=== PATIENT | female | born 1960 | race African-American/Black ===

== ENCOUNTER 2020-07-04 21:35 | Inpatient (IN) ==
[2020-07-04] MEDS ORDERED: SODIUM CHLORIDE 0.9% 500 ML IV STA (22:18)
[2020-07-04 22:43] LABS: Basophils # 0.1 10*3/uL (0.0-0.2); Basophils % 1.4 % (0.0-0.8); Eosinophils # 0.6 10*3/uL (0.0-0.87); Eosinophils % 12.2 % (0.00-10.9); Hematocrit 34.8 VOL% (35.7-47.0); Hemoglobin 11.6 GM/DL (12.0-16.0); Immature Granulocytes % 0.4 %; Immature Granulocytes Absolute 0.02 #; Lymphocytes # 0.9 10*3/uL (1.4-4.0); Lymphocytes % 18.1 % (21.3-54.2); Mean Corpuscular HGB Conc 33.3 GM/DL (32-36); Mean Corpuscular Volume 66.5 FL (87-102); Neutrophils % 55.9 % (38.7-73.9); Platelet Count 222 T/CUMM (130-400); Red Blood Count 5.23 MC/CUMM (3.8-5.5); White Blood Count 4.9 T/CUMM (4-12)
[2020-07-04 23:01] LABS: Albumin 3.9 G/DL (3.4-5.0); Bilirubin,Total 1.7 MG/DL (0.2-1.0); Calcium 9.5 MG/DL (8.5-10.1); Osmolality,Calculated 288.4 MOS/KG (273-304); Potassium 4.3 MMOL/L (3.5-5.1); Total Protein 8.5 G/DL (6.4-8.3)
[2020-07-04 23:07] LABS: Eosinophils 12 % (0-10); Hypochromasia Slight; Lymphocytes 16 % (20-55); Microcytosis 2+; Platelet Estimate Normal; Segmented Neutrophils 68 % (50-85); Total Cells Counted 100
[2020-07-05] MEDS ORDERED: GLUCAGON 1 MG VIAL IM PRN (00:38)
[2020-07-05] MEDS ORDERED: ACETAMINOPHEN 325 MG TABLET PO PRN (00:38)
[2020-07-05] MEDS ORDERED: DEXTROSE 50% 25 GM/50 ML VIAL IV PRN (00:38)
[2020-07-05] MEDS ORDERED: MAGNESIUM SULF RIDER 4 GM in PREMIX 1 EACH IV PRN (00:38)
[2020-07-05] MEDS ORDERED: DEXTROSE 50% 25 GM/50 ML SYRINGE IV PRN (01:08)
[2020-07-05] MEDS: ENOXAPARIN 30 MG/0.3 ML SYRINGE SUBCUT SCH (02:18)
[2020-07-05] MEDS: MAGNESIUM SULF RIDER 2 GM in PREMIX 1 EACH IV PRN ×2 (04:12→06:34)
[2020-07-05] MEDS: ALBUTEROL/IPRATROPIUM 3 ML NEB RESP TX SCH ×3 (07:44→19:07)
[2020-07-05] MEDS: INSULIN REGULAR 100 UNIT/ML SUBCUT SCH ×4 (07:56→21:36)
[2020-07-05 08:54] LABS: Basophils # 0.1 10*3/uL (0.0-0.2); Basophils % 1.1 % (0.0-0.8); Eosinophils # 0.6 10*3/uL (0.0-0.87); Hematocrit 32.7 VOL% (35.7-47.0); Immature Granulocytes % 0.4 %; Immature Granulocytes Absolute 0.02 #; Lymphocytes # 0.8 10*3/uL (1.4-4.0); Lymphocytes % 16.9 % (21.3-54.2); Mean Corpuscular HGB Conc 33.6 GM/DL (32-36); Mean Corpuscular Volume 66.1 FL (87-102); Monocytes % 16.7 % (1.7-12.7); Neutrophils % 52.9 % (38.7-73.9); Platelet Count 224 T/CUMM (130-400); Red Blood Count 4.95 MC/CUMM (3.8-5.5); Red Cell Distribution Width 20.7 % (9.3-17.3); White Blood Count 4.7 T/CUMM (4-12)
[2020-07-05] MEDS: PANTOPRAZOLE 40 MG TABLET PO SCH (08:55)
[2020-07-05] MEDS: FUROSEMIDE 40 MG/4 ML VIAL IV SCH ×2 (08:56→17:01)
[2020-07-05] MEDS: methylPREDNISolone SOD SUC 40 MG/1 ML VIAL IV SCH ×2 (09:00→21:37)
[2020-07-05 09:13] LABS: Eosinophils 9 % (0-10); Hypochromasia 1+; Lymphocytes 17 % (20-55); Microcytosis 1+; Platelet Estimate Adequate; Segmented Neutrophils 62 % (50-85); Total Cells Counted 100
[2020-07-05 09:14] LABS: Albumin 3.6 G/DL (3.4-5.0); Bilirubin,Total 1.7 MG/DL (0.2-1.0); Calcium 9.7 MG/DL (8.5-10.1); Osmolality,Calculated 290.2 MOS/KG (273-304); Potassium 4.3 MMOL/L (3.5-5.1); Total Protein 7.9 G/DL (6.4-8.3)
[2020-07-05] MEDS: cefTRIAXone 1,000 MG in SYRINGE 1 EACH IV SCH (17:03)
[2020-07-05] MEDS: AZITHROMYCIN INJ 500 MG in SODIUM CHLORIDE 0.9% 250 ML IV SCH (17:09)
[2020-07-06] MEDS: ALBUTEROL/IPRATROPIUM 3 ML NEB RESP TX SCH ×4 (01:18→20:23)
[2020-07-06] MEDS: ENOXAPARIN 30 MG/0.3 ML SYRINGE SUBCUT SCH (01:50)
[2020-07-06 05:32] LABS: Hematocrit 32.4 VOL% (35.7-47.0); Hemoglobin 10.9 GM/DL (12.0-16.0); Immature Granulocytes % 0.4 %; Immature Granulocytes Absolute 0.01 #; Lymphocytes # 0.3 10*3/uL (1.4-4.0); Lymphocytes % 11.3 % (21.3-54.2); Mean Corpuscular HGB Conc 33.6 GM/DL (32-36); Monocytes % 7.3 % (1.7-12.7); Platelet Count 214 T/CUMM (130-400); Red Blood Count 4.91 MC/CUMM (3.8-5.5); Red Cell Distribution Width 20.5 % (9.3-17.3)
[2020-07-06 05:47] LABS: White Blood Count 2.8 T/CUMM (4-12)
[2020-07-06 05:55] LABS: Calcium 9.9 MG/DL (8.5-10.1); Osmolality,Calculated 295.1 MOS/KG (273-304); Potassium 4.5 MMOL/L (3.5-5.1)
[2020-07-06 05:57] LABS: Albumin 3.6 G/DL (3.4-5.0); Bilirubin,Total 1.4 MG/DL (0.2-1.0); Calcium 9.9 MG/DL (8.5-10.1); Osmolality,Calculated 294.2 MOS/KG (273-304); Potassium 4.6 MMOL/L (3.5-5.1); Total Protein 8.2 G/DL (6.4-8.3)
[2020-07-06 05:59] LABS: Platelet Estimate Adequate
[2020-07-06 06:00] LABS: Hypochromasia 1+; Ovalocytes Slight; Target Cells Few
[2020-07-06 06:02] LABS: Parathyroid Hormone Intact 118.6 PG/ML (18.4-80.1)
[2020-07-06 06:07] LABS: % Iron Saturation 11.3 % (18-50); Thyroid Stimulating Hormone 2.02 uIU/ml (0.358-3.74); Total Protein 8.3 G/DL (6.4-8.3); Uric Acid 18.8 MG/DL (2.6-6.0)
[2020-07-06 07:40] LABS: Albumin (SPE) Rel % 61.3 %; Alpha 1 (SPE) Rel % 3.2 %; Alpha 2 (SPE) Rel % 7.6 %; Beta (SPE) Rel % 9.6 %
[2020-07-06 07:41] LABS: Sedimentation Rate-Westergren 22 MM/HR (0-30)
[2020-07-06] MEDS: PANTOPRAZOLE 40 MG TABLET PO SCH (08:22)
[2020-07-06] MEDS: MULTIVITAMIN (CENTRUM) TABLET PO SCH (08:22)
[2020-07-06] MEDS: FUROSEMIDE 40 MG/4 ML VIAL IV SCH ×2 (08:22→16:42)
[2020-07-06] MEDS: methylPREDNISolone SOD SUC 40 MG/1 ML VIAL IV SCH ×2 (08:24→20:48)
[2020-07-06 08:40] LABS: Total Protein (Chem) 8.3 G/DL (6.4-8.3)
[2020-07-06 08:41] LABS: Albumin (SPE) 5.1 G/DL (3.2-5.3); Alpha 1 (SPE) 0.3 G/DL (0.1-0.4); Alpha 2 (SPE) 0.6 G/DL (0.4-1.0); Beta (SPE) 0.8 G/DL (0.5-1.1); Gamma (SPE) 1.5 G/DL (0.7-1.7)
[2020-07-06] MEDS: INSULIN REGULAR 100 UNIT/ML SUBCUT SCH ×4 (09:20→20:48)
[2020-07-06 10:25] LABS: Gamma (SPE) Rel % 18.3 %
[2020-07-06 10:26] LABS: Immunoglobulin A (Chem) 158 MG/DL (70-400); Immunoglobulin G (Chem) 1730 MG/DL (700-1600); Immunoglobulin M (Chem) 107 MG/DL (40-230)
[2020-07-06] MEDS ORDERED: ceFAZolin 1,000 MG in SYRINGE 1 EACH IV ONE (13:30)
[2020-07-06] MEDS ORDERED: SODIUM CHLORIDE 0.9% 1,000 ML IV SCH (14:00)
[2020-07-06] MEDS ORDERED: ONDANSETRON 4 MG/2 ML VIAL ONE (14:25)
[2020-07-06] MEDS ORDERED: propofoL 200 MG/20 ML VIAL IV ONE ×2 (14:25→15:28)
[2020-07-06] MEDS ORDERED: LIDOCAINE 2% 5 ML VIAL ONE ×2 (14:25→15:28)
[2020-07-06] MEDS ORDERED: BUPIVACAINE MPF 0.25% 30 ML VIAL ONE (14:28)
[2020-07-06] MEDS ORDERED: HEPARIN 5,000 UNIT/1 ML VIAL ONE (14:28)
[2020-07-06] MEDS ORDERED: LIDOCAINE 2%/EPI 20 ML VIAL ONE (14:29)
[2020-07-06] MEDS ORDERED: LIDOCAINE 1% 20 ML VIAL ONE (14:30)
[2020-07-06 15:25] LABS: Hepatitis B Core IgM Quant 0.08 Index; Hepatitis B Surface Ag Quant < 0.10 Index; Hepatitis B Surface Ag Result Negative (Negative); Hepatitis C Virus Ab Quant < 0.02 Index; Hepatitis C Virus Ab Result Negative (Negative)
[2020-07-06] MEDS ORDERED: TISSUE ADHESIVE 1 EACH APPLICATOR TOP ONE (15:25)
[2020-07-06] MEDS ORDERED: CALCIUM CHLORIDE 1,000 MG/10 ML VIAL IV ONE (15:28)
[2020-07-06] MEDS: cefTRIAXone 1,000 MG in SYRINGE 1 EACH IV SCH (16:45)
[2020-07-06] MEDS: SEVELAMER CARBONATE 800 MG TABLET PO SCH (16:52)
[2020-07-06] MEDS: AZITHROMYCIN INJ 500 MG in SODIUM CHLORIDE 0.9% 250 ML IV SCH (16:52)
[2020-07-07] MEDS: ENOXAPARIN 30 MG/0.3 ML SYRINGE SUBCUT SCH (01:50)
[2020-07-07] MEDS: ALBUTEROL/IPRATROPIUM 3 ML NEB RESP TX SCH ×4 (02:27→19:43)
[2020-07-07 02:45] LABS: Calcium 10.5 MG/DL (8.5-10.1); Osmolality,Calculated 298.9 MOS/KG (273-304); Potassium 4.4 MMOL/L (3.5-5.1)
[2020-07-07 02:53] LABS: Hematocrit 33.3 VOL% (35.7-47.0); Hemoglobin 11.2 GM/DL (12.0-16.0); Immature Granulocytes % 0.2 %; Immature Granulocytes Absolute 0.01 #; Lymphocytes # 0.3 10*3/uL (1.4-4.0); Lymphocytes % 6.6 % (21.3-54.2); Mean Corpuscular HGB Conc 33.6 GM/DL (32-36); Mean Corpuscular Volume 65.9 FL (87-102); Monocytes % 7.1 % (1.7-12.7); Neutrophils % 86.1 % (38.7-73.9); Platelet Count 217 T/CUMM (130-400); Red Blood Count 5.05 MC/CUMM (3.8-5.5); Red Cell Distribution Width 21.1 % (9.3-17.3); White Blood Count 4.2 T/CUMM (4-12)
[2020-07-07 02:54] LABS: Albumin 3.9 G/DL (3.4-5.0); Bilirubin,Total 1.5 MG/DL (0.2-1.0); Calcium 10.7 MG/DL (8.5-10.1); Osmolality,Calculated 300.8 MOS/KG (273-304); Potassium 4.5 MMOL/L (3.5-5.1); Total Protein 8.7 G/DL (6.4-8.3); Uric Acid 18.9 MG/DL (2.6-6.0)
[2020-07-07 04:36] LABS: Anisocytosis 1+; Hypochromasia 1+; Microcytosis 1+
[2020-07-07 04:37] LABS: Platelet Estimate Normal; Target Cells Few
[2020-07-07] MEDS: FUROSEMIDE 40 MG/4 ML VIAL IV SCH ×2 (07:33→16:26)
[2020-07-07] MEDS ORDERED: DEXTROSE 50% 25 GM/50 ML VIAL IV PRN (08:07)
[2020-07-07] MEDS ORDERED: GLUCAGON 1 MG VIAL IM PRN (08:07)
[2020-07-07] MEDS: INSULIN REGULAR 100 UNIT/ML SUBCUT SCH ×3 (08:47→16:26)
[2020-07-07] MEDS: SEVELAMER CARBONATE 800 MG TABLET PO SCH ×3 (08:48→16:27)
[2020-07-07] MEDS: AZITHROMYCIN 250 MG TABLET PO SCH (08:48)
[2020-07-07] MEDS: MULTIVITAMIN (CENTRUM) TABLET PO SCH (08:48)
[2020-07-07] MEDS: PANTOPRAZOLE 40 MG TABLET PO SCH (08:49)
[2020-07-07] MEDS: methylPREDNISolone SOD SUC 40 MG/1 ML VIAL IV SCH ×2 (08:49→23:45)
[2020-07-07] MEDS ORDERED: LOSARTAN 50 MG TABLET PO SCH (10:30)
[2020-07-07] MEDS ORDERED: SPIRONOLACTONE 25 MG TABLET PO SCH (10:30)
[2020-07-07 11:10] LABS: Bacteria,Urine Occasional /HPF (Few); Bilirubin,Urine Negative (Negative); Blood, Urine Negative (Negative); Glucose,Urine (UA) Negative (Negative); Hyaline Casts,Urine 4 /LPF (0-3); Ketones,Urine Negative (Negative); Mucus,Urine Occasional /LPF (Occasional); Nitrite,Urine Negative (Negative); Protein,Urine Negative; RBC,Urine 1 /HPF (0-4); Squamous Epithelial Cell,Urine Occasional /HPF (0-10); Urine Appearance CLEAR (Clear); Urine Specific Gravity 1.011 (1.001-1.035); Urine Urobilinogen < 2.0 EU/DL (0.2-1.0); WBC,Urine 8 /HPF (0-6)
[2020-07-07 11:11] LABS: Urine Color Yellow (Yellow)
[2020-07-07] MEDS: LORATADINE 10 MG TABLET PO SCH (11:15)
[2020-07-07] MEDS: carvediloL 6.25 MG TABLET PO SCH (11:16)
[2020-07-07] MEDS: HEPARIN 5,000 UNIT/1 ML VIAL SUBCUT SCH ×2 (11:16→23:45)
[2020-07-07] MEDS: ERGOCALCIFEROL 50,000 UNIT CAPSULE PO SCH (11:17)
[2020-07-07] MEDS: LEVOTHYROXINE 25 MCG TABLET PO SCH (11:21)
[2020-07-07 11:45] LABS: Protein/Creatinine Ratio,Urine 0.3 RATIO
[2020-07-07] MEDS ORDERED: HEPARIN 10,000 UNIT/10 ML VIAL IV PRN (13:23)
[2020-07-07] MEDS: cefTRIAXone 1,000 MG in SYRINGE 1 EACH IV SCH (16:27)
[2020-07-08] MEDS: ALBUTEROL/IPRATROPIUM 3 ML NEB RESP TX SCH ×4 (00:35→20:27)
[2020-07-08] MEDS: carvediloL 6.25 MG TABLET PO SCH ×2 (01:23→07:39)
[2020-07-08] MEDS: INSULIN REGULAR 100 UNIT/ML SUBCUT SCH ×4 (01:39→17:22)
[2020-07-08] MEDS: HEPARIN 5,000 UNIT/1 ML VIAL SUBCUT SCH ×3 (05:47→19:26)
[2020-07-08] MEDS: LEVOTHYROXINE 25 MCG TABLET PO SCH (06:48)
[2020-07-08] MEDS ORDERED: carvediloL 12.5 MG TABLET PO SCH (08:05)
[2020-07-08] MEDS ORDERED: carvediloL 6.25 MG TABLET PO ONE (08:19)
[2020-07-08] MEDS: AZITHROMYCIN 250 MG TABLET PO SCH (09:45)
[2020-07-08] MEDS: SEVELAMER CARBONATE 800 MG TABLET PO SCH ×3 (09:45→17:21)
[2020-07-08] MEDS: LOSARTAN 25 MG TABLET PO SCH (09:46)
[2020-07-08] MEDS: PANTOPRAZOLE 40 MG TABLET PO SCH (09:46)
[2020-07-08] MEDS: MULTIVITAMIN (CENTRUM) TABLET PO SCH (09:46)
[2020-07-08] MEDS: LORATADINE 10 MG TABLET PO SCH (09:46)
[2020-07-08] MEDS: FUROSEMIDE 40 MG/4 ML VIAL IV SCH ×2 (09:47→17:21)
[2020-07-08] MEDS: methylPREDNISolone SOD SUC 40 MG/1 ML VIAL IV SCH (09:47)
[2020-07-08 10:46] LABS: Hematocrit 32.3 VOL% (35.7-47.0); Hemoglobin 10.7 GM/DL (12.0-16.0); Immature Granulocytes % 0.5 %; Immature Granulocytes Absolute 0.02 #; Lymphocytes # 0.5 10*3/uL (1.4-4.0); Lymphocytes % 13.6 % (21.3-54.2); Mean Corpuscular HGB Conc 33.1 GM/DL (32-36); Mean Corpuscular Volume 66.3 FL (87-102); Monocytes % 10.8 % (1.7-12.7); NRBC # 0.02 10*3/uL; Neutrophils % 75.1 % (38.7-73.9); Platelet Count 194 T/CUMM (130-400); Red Blood Count 4.87 MC/CUMM (3.8-5.5); Red Cell Distribution Width 21.2 % (9.3-17.3); White Blood Count 3.9 T/CUMM (4-12)
[2020-07-08 11:00] LABS: Osmolality,Calculated 292.7 MOS/KG (273-304); Potassium 4.4 MMOL/L (3.5-5.1)
[2020-07-08 12:31] LABS: Burr Cells Few; Hypochromasia 4+; Microcytosis 4+; Ovalocytes Few; Platelet Estimate Normal; Polychromasia Slight; Target Cells 2+
[2020-07-08] MEDS: cefTRIAXone 1,000 MG in SYRINGE 1 EACH IV SCH (17:21)
[2020-07-09] MEDS: carvediloL 12.5 MG TABLET PO SCH ×3 (00:47→23:30)
[2020-07-09] MEDS: ALBUTEROL/IPRATROPIUM 3 ML NEB RESP TX SCH ×4 (00:50→19:56)
[2020-07-09] MEDS: INSULIN REGULAR 100 UNIT/ML SUBCUT SCH ×5 (00:50→23:40)
[2020-07-09] MEDS: methylPREDNISolone SOD SUC 40 MG/1 ML VIAL IV SCH ×3 (00:53→23:33)
[2020-07-09] MEDS: HEPARIN 5,000 UNIT/1 ML VIAL SUBCUT SCH ×3 (04:20→18:00)
[2020-07-09] MEDS: LEVOTHYROXINE 25 MCG TABLET PO SCH (06:06)
[2020-07-09 06:48] LABS: Hematocrit 33.6 VOL% (35.7-47.0); Hemoglobin 10.8 GM/DL (12.0-16.0); Immature Granulocytes % 0.2 %; Immature Granulocytes Absolute 0.01 #; Lymphocytes # 0.5 10*3/uL (1.4-4.0); Lymphocytes % 11.2 % (21.3-54.2); Mean Corpuscular HGB Conc 32.1 GM/DL (32-36); Mean Corpuscular Volume 68.2 FL (87-102); Monocytes % 10.2 % (1.7-12.7); Neutrophils % 78.4 % (38.7-73.9); Platelet Count 165 T/CUMM (130-400); Red Blood Count 4.93 MC/CUMM (3.8-5.5); Red Cell Distribution Width 21.3 % (9.3-17.3); White Blood Count 4.2 T/CUMM (4-12)
[2020-07-09 06:59] LABS: Osmolality,Calculated 286.5 MOS/KG (273-304); Potassium 4.3 MMOL/L (3.5-5.1)
[2020-07-09] MEDS: SEVELAMER CARBONATE 800 MG TABLET PO SCH ×3 (09:07→16:12)
[2020-07-09] MEDS: PANTOPRAZOLE 40 MG TABLET PO SCH (09:08)
[2020-07-09] MEDS: AZITHROMYCIN 250 MG TABLET PO SCH (09:08)
[2020-07-09] MEDS: MULTIVITAMIN (CENTRUM) TABLET PO SCH (09:08)
[2020-07-09] MEDS: LORATADINE 10 MG TABLET PO SCH (09:08)
[2020-07-09] MEDS: LOSARTAN 25 MG TABLET PO SCH (09:08)
[2020-07-09] MEDS: FUROSEMIDE 40 MG/4 ML VIAL IV SCH ×2 (09:10→16:12)
[2020-07-09] MEDS: cefTRIAXone 1,000 MG in SYRINGE 1 EACH IV SCH (16:13)
[2020-07-09] MEDS ORDERED: diphenhydrAMINE CAP 25 MG CAPSULE PO PRN (23:52)
[2020-07-10] MEDS: ALBUTEROL/IPRATROPIUM 3 ML NEB RESP TX SCH ×4 (00:39→18:42)
[2020-07-10] MEDS: HEPARIN 5,000 UNIT/1 ML VIAL SUBCUT SCH ×3 (04:06→18:23)
[2020-07-10 05:29] LABS: Hematocrit 33.8 VOL% (35.7-47.0); Hemoglobin 10.9 GM/DL (12.0-16.0); Immature Granulocytes % 0.6 %; Immature Granulocytes Absolute 0.03 #; Lymphocytes # 0.5 10*3/uL (1.4-4.0); Mean Corpuscular HGB Conc 32.2 GM/DL (32-36); Mean Corpuscular Volume 68.4 FL (87-102); Monocytes % 8.4 % (1.7-12.7); NRBC # 0.03 10*3/uL; Platelet Count 186 T/CUMM (130-400); Red Blood Count 4.94 MC/CUMM (3.8-5.5); Red Cell Distribution Width 21.5 % (9.3-17.3); White Blood Count 4.6 T/CUMM (4-12)
[2020-07-10 05:50] LABS: Osmolality,Calculated 290.4 MOS/KG (273-304); Potassium 4.3 MMOL/L (3.5-5.1)
[2020-07-10 05:55] LABS: Hypochromasia 2+; Target Cells 1+
[2020-07-10 05:56] LABS: Microcytosis 2+; Ovalocytes Few; Polychromasia Slight
[2020-07-10 05:57] LABS: Platelet Estimate Adequate
[2020-07-10] MEDS: LEVOTHYROXINE 25 MCG TABLET PO SCH (06:27)
[2020-07-10] MEDS: SEVELAMER CARBONATE 800 MG TABLET PO SCH ×3 (10:21→17:18)
[2020-07-10] MEDS: INSULIN REGULAR 100 UNIT/ML SUBCUT SCH ×4 (10:21→21:20)
[2020-07-10] MEDS: FUROSEMIDE 40 MG/4 ML VIAL IV SCH (10:21)
[2020-07-10] MEDS: LORATADINE 10 MG TABLET PO SCH (13:51)
[2020-07-10] MEDS: carvediloL 12.5 MG TABLET PO SCH ×2 (13:51→21:21)
[2020-07-10] MEDS: AZITHROMYCIN 250 MG TABLET PO SCH (13:51)
[2020-07-10] MEDS: MULTIVITAMIN (CENTRUM) TABLET PO SCH (13:51)
[2020-07-10] MEDS: PANTOPRAZOLE 40 MG TABLET PO SCH (13:51)
[2020-07-10] MEDS: LOSARTAN 25 MG TABLET PO SCH (13:52)
[2020-07-10] MEDS: methylPREDNISolone SOD SUC 40 MG/1 ML VIAL IV SCH ×2 (14:05→21:21)
[2020-07-10] MEDS ORDERED: INFLUENZA VIRUS VACCINE 0.5 ML SYRINGE IM ONE (15:55)
[2020-07-10] MEDS: FUROSEMIDE 20 MG TABLET PO SCH (17:08)
[2020-07-10] MEDS: cefTRIAXone 1,000 MG in SYRINGE 1 EACH IV SCH (17:12)
[2020-07-11] MEDS: ALBUTEROL/IPRATROPIUM 3 ML NEB RESP TX SCH ×4 (00:42→18:58)
[2020-07-11] MEDS: HEPARIN 5,000 UNIT/1 ML VIAL SUBCUT SCH ×3 (02:03→18:00)
[2020-07-11 05:50] LABS: Eosinophils % 0.2 % (0.00-10.9); Hematocrit 34.2 VOL% (35.7-47.0); Immature Granulocytes % 0.8 %; Immature Granulocytes Absolute 0.04 #; Lymphocytes # 0.4 10*3/uL (1.4-4.0); Lymphocytes % 8.1 % (21.3-54.2); Mean Corpuscular HGB Conc 32.2 GM/DL (32-36); Mean Corpuscular Volume 69.5 FL (87-102); Monocytes % 5.3 % (1.7-12.7); NRBC # 0.04 10*3/uL; Neutrophils % 85.6 % (38.7-73.9); Platelet Count 158 T/CUMM (130-400); Red Blood Count 4.92 MC/CUMM (3.8-5.5); Red Cell Distribution Width 22.1 % (9.3-17.3); White Blood Count 5.1 T/CUMM (4-12)
[2020-07-11 06:07] LABS: Calcium 9.7 MG/DL (8.5-10.1); Osmolality,Calculated 284.1 MOS/KG (273-304); Potassium 4.2 MMOL/L (3.5-5.1)
[2020-07-11 06:16] LABS: Calcium 9.9 MG/DL (8.5-10.1); Osmolality,Calculated 283.1 MOS/KG (273-304); Potassium 4.3 MMOL/L (3.5-5.1)
[2020-07-11 06:31] LABS: Hypochromasia 1+; Microcytosis 1+
[2020-07-11] MEDS: PANTOPRAZOLE 40 MG TABLET PO SCH (08:02)
[2020-07-11] MEDS: LEVOTHYROXINE 25 MCG TABLET PO SCH (08:02)
[2020-07-11] MEDS: LOSARTAN 25 MG TABLET PO SCH (08:02)
[2020-07-11] MEDS: LORATADINE 10 MG TABLET PO SCH (08:02)
[2020-07-11] MEDS: AZITHROMYCIN 250 MG TABLET PO SCH (08:02)
[2020-07-11] MEDS: SEVELAMER CARBONATE 800 MG TABLET PO SCH ×3 (08:02→16:19)
[2020-07-11] MEDS: carvediloL 12.5 MG TABLET PO SCH ×2 (08:02→21:11)
[2020-07-11 08:03] LABS: Random Urine Protein (Bench) 32 MG/DL (<11.9)
[2020-07-11] MEDS: INSULIN REGULAR 100 UNIT/ML SUBCUT SCH ×4 (08:03→21:13)
[2020-07-11] MEDS: MULTIVITAMIN (CENTRUM) TABLET PO SCH (08:03)
[2020-07-11] MEDS: FUROSEMIDE 20 MG TABLET PO SCH ×2 (08:03→16:19)
[2020-07-11] MEDS: methylPREDNISolone SOD SUC 40 MG/1 ML VIAL IV SCH ×2 (08:06→21:11)
[2020-07-11 11:56] LABS: Immuno Free Light Chain Kappa 8.61 MG/DL (0.33-1.94); Immuno Free Light Chain Lambda 4.94 MG/DL (0.57-2.63); Immuno Free Light Chain Ratio 1.74 MG/DL (0.26-1.65)
[2020-07-11] MEDS: cefTRIAXone 1,000 MG in SYRINGE 1 EACH IV SCH (16:19)
[2020-07-12] MEDS: ALBUTEROL/IPRATROPIUM 3 ML NEB RESP TX SCH ×4 (01:10→19:27)
[2020-07-12] MEDS: HEPARIN 5,000 UNIT/1 ML VIAL SUBCUT SCH ×3 (04:04→21:40)
[2020-07-12 06:36] LABS: Basophils % 0.2 % (0.0-0.8); Hematocrit 33.6 VOL% (35.7-47.0); Immature Granulocytes % 0.4 %; Immature Granulocytes Absolute 0.02 #; Lymphocytes # 0.3 10*3/uL (1.4-4.0); Lymphocytes % 7.4 % (21.3-54.2); Mean Corpuscular HGB Conc 32.7 GM/DL (32-36); Mean Corpuscular Volume 69.1 FL (87-102); Monocytes % 9.1 % (1.7-12.7); NRBC # 0.05 10*3/uL; Neutrophils % 82.9 % (38.7-73.9); Platelet Count 155 T/CUMM (130-400); Red Blood Count 4.86 MC/CUMM (3.8-5.5); Red Cell Distribution Width 21.8 % (9.3-17.3); White Blood Count 4.6 T/CUMM (4-12)
[2020-07-12 06:48] LABS: Calcium 9.4 MG/DL (8.5-10.1); Osmolality,Calculated 283.5 MOS/KG (273-304); Potassium 4.5 MMOL/L (3.5-5.1)
[2020-07-12 06:53] LABS: Uric Acid 9.1 MG/DL (2.6-6.0)
[2020-07-12 07:03] LABS: Hypochromasia 1+; Platelet Estimate Adequate; Target Cells Few
[2020-07-12 07:04] LABS: Microcytosis 1+
[2020-07-12] MEDS: AZITHROMYCIN 250 MG TABLET PO SCH (09:03)
[2020-07-12] MEDS: LEVOTHYROXINE 25 MCG TABLET PO SCH (09:03)
[2020-07-12] MEDS: MULTIVITAMIN (CENTRUM) TABLET PO SCH (09:03)
[2020-07-12] MEDS: carvediloL 12.5 MG TABLET PO SCH ×2 (09:03→21:34)
[2020-07-12] MEDS: LOSARTAN 25 MG TABLET PO SCH (09:03)
[2020-07-12] MEDS: SEVELAMER CARBONATE 800 MG TABLET PO SCH (09:03)
[2020-07-12] MEDS: LORATADINE 10 MG TABLET PO SCH (09:03)
[2020-07-12] MEDS: FUROSEMIDE 20 MG TABLET PO SCH (09:04)
[2020-07-12] MEDS: PANTOPRAZOLE 40 MG TABLET PO SCH (09:04)
[2020-07-12] MEDS: methylPREDNISolone SOD SUC 40 MG/1 ML VIAL IV SCH ×2 (09:07→21:37)
[2020-07-12] MEDS: INSULIN REGULAR 100 UNIT/ML SUBCUT SCH ×4 (09:12→21:37)
[2020-07-12] MEDS: cefTRIAXone 1,000 MG in SYRINGE 1 EACH IV SCH (17:40)
[2020-07-13] MEDS: ALBUTEROL/IPRATROPIUM 3 ML NEB RESP TX SCH ×4 (01:22→19:13)
[2020-07-13] MEDS: HEPARIN 5,000 UNIT/1 ML VIAL SUBCUT SCH ×3 (03:57→18:17)
[2020-07-13] MEDS: LEVOTHYROXINE 25 MCG TABLET PO SCH (06:09)
[2020-07-13 07:02] LABS: Calcium 9.7 MG/DL (8.5-10.1); Calcium 9.8 MG/DL (8.5-10.1); Osmolality,Calculated 281.8 MOS/KG (273-304); Osmolality,Calculated 284.5 MOS/KG (273-304); Potassium 4.5 MMOL/L (3.5-5.1); Potassium 5.3 MMOL/L (3.5-5.1)
[2020-07-13] MEDS: INSULIN REGULAR 100 UNIT/ML SUBCUT SCH ×4 (08:25→22:18)
[2020-07-13] MEDS: methylPREDNISolone SOD SUC 40 MG/1 ML VIAL IV SCH ×2 (09:57→22:16)
[2020-07-13] MEDS: LORATADINE 10 MG TABLET PO SCH (09:57)
[2020-07-13] MEDS: AZITHROMYCIN 250 MG TABLET PO SCH (09:58)
[2020-07-13] MEDS: LOSARTAN 25 MG TABLET PO SCH (09:58)
[2020-07-13] MEDS: MULTIVITAMIN (CENTRUM) TABLET PO SCH (09:58)
[2020-07-13] MEDS: carvediloL 12.5 MG TABLET PO SCH ×2 (09:58→22:14)
[2020-07-13] MEDS: PANTOPRAZOLE 40 MG TABLET PO SCH (09:58)
[2020-07-14] MEDS: HEPARIN 5,000 UNIT/1 ML VIAL SUBCUT SCH ×2 (04:20→13:10)
[2020-07-14 06:22] LABS: Calcium 9.6 MG/DL (8.5-10.1); Osmolality,Calculated 283.7 MOS/KG (273-304); Potassium 4.6 MMOL/L (3.5-5.1)
[2020-07-14] MEDS: LEVOTHYROXINE 25 MCG TABLET PO SCH (06:29)
[2020-07-14] MEDS: ALBUTEROL/IPRATROPIUM 3 ML NEB RESP TX SCH ×2 (07:07)
[2020-07-14] MEDS: INSULIN REGULAR 100 UNIT/ML SUBCUT SCH ×2 (09:58→13:10)
[2020-07-14] MEDS: methylPREDNISolone SOD SUC 40 MG/1 ML VIAL IV SCH (10:00)
[2020-07-14] MEDS: AZITHROMYCIN 250 MG TABLET PO SCH (10:03)
[2020-07-14] MEDS: LOSARTAN 25 MG TABLET PO SCH (10:03)
[2020-07-14] MEDS: carvediloL 12.5 MG TABLET PO SCH (10:03)
[2020-07-14] MEDS: MULTIVITAMIN (CENTRUM) TABLET PO SCH (10:03)
[2020-07-14] MEDS: PANTOPRAZOLE 40 MG TABLET PO SCH (10:03)
[2020-07-14] MEDS: LORATADINE 10 MG TABLET PO SCH (10:03)
[2020-07-14] MEDS: ERGOCALCIFEROL 50,000 UNIT CAPSULE PO SCH (10:05)
[2020-07-14 11:36] VITALS: BP 119/72
== END 2020-07-14 13:46 | disposition home or self-care (01) | DRG 673 ==
LOC: N.ED 21:35 → SUATTDRO 07-05 01:41 → N.EDINP 07-05 01:41 → N.TELEN 07-05 03:01
PROVIDERS: ADMIT Internal Medicine; ATTEND Internal Medicine Geriatric Medicine